=== PATIENT | male | born 2005 | race Two or more races ===

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

== ENCOUNTER 2023-04-21 12:56 | Emergency (ER) | payer OTHER ==
[2023-04-21 13:11] VITALS: BMI 19.3
[2023-04-21] MEDS ORDERED: ACETAMINOPHEN 1000 MG/100 ML BAG IVPB ONE (13:39)
[2023-04-21] MEDS ORDERED: ACETAMINOPHEN INJECTION 100 ML IVPB ONE (13:46)
[2023-04-21 14:29] LABS: BASO % 0.5 % (0-2.0); EOS % 1.9 % (0-4.5); HEMATOCRIT 44.2 % (35.4-49); LYMPH % 10.4 % (8-40); MCH 31.2 pg (25.7-33.7); MCHC 33.9 g/dl (32.0-35.9); MEAN CELL VOLUME 92.1 fl (80-96); MEAN PLT VOLUME 8.4 fl (7.5-11.1); MONO % 8.6 % (3.8-10.2); NEUT % 78.6 % (42.8-82.8); PLATELET COUNT 188 10^3/uL (134-434); RDW 12.3 % (11.9-15.9); WHITE BLOOD COUNT 8.6 K/mm3 (4.0-10.0)
[2023-04-21 14:33] LABS: INR 1.11 (0.83-1.09); PROTHROMBIN TIME (PATIENT) 12.9 SEC (9.7-13.0)
[2023-04-21 14:36] LABS: ACTIVATED PTT 31.7 SECONDS (25.2-36.5)
[2023-04-21 14:57] LABS: POTASSIUM 4.4 mmol/L (3.5-5.1)
[2023-04-21 15:00] LABS: ALBUMIN 4.1 g/dl (3.4-5.0)
[2023-04-21 15:01] LABS: BLOOD UREA NITROGEN 11.2 mg/dL (7-18)
[2023-04-21 15:05] LABS: BILIRUBIN,TOTAL 1.5 mg/dL (0.2-1); TOT PROT 7.2 g/dl (6.4-8.2)
[2023-04-21 15:44] LABS: URINE APPEARANCE CLEAR; URINE BILIRUBIN NEGATIVE (NEGATIVE); URINE COLOR YELLOW; URINE GLUCOSE (UA) NEGATIVE (NEGATIVE); URINE KETONE NEGATIVE (NEGATIVE); URINE LEUK ESTERASE NEGATIVE (NEGATIVE); URINE NITRITE NEGATIVE (NEGATIVE); URINE PROTEIN NEGATIVE (NEGATIVE); URINE UROBILINOGEN 0.2 mg/dL (0.2-1.0)
[2023-04-21 15:57] VITALS: BP 97/56; PULSE 72; RESP 18; TEMP 98.2
[2023-04-21] MEDS ORDERED: cefTRIAXone SODIUM 1 GM VIAL ONE (16:04)
[2023-04-21] MEDS ORDERED: LIDOCAINE HCL/PF 1% SDV 5ML VIAL ONE (16:05)
== END 2023-04-21 16:31 | disposition home or self-care (01) ==
LOC: JER 12:56
PROC: 3E023GC Introduction of Other Therapeutic Substance into Muscle, Percutaneous Approach (ICD-10-PCS; principal; 2023-04-21)
PROC: 3E033GC Introduction of Other Therapeutic Substance into Peripheral Vein, Percutaneous Approach (ICD-10-PCS; principal; 2023-04-21)
DX: N45.1 Epididymitis (principal)
CPT/HCPCS: 36415; 76870-TC; 80053; 81003; 85025; 85610; 85730; 86850; 86900; 86901; 87086; 87491; 87591; 87661; 99284-25

== ENCOUNTER 2023-05-02 14:49 | Emergency (ER) | payer OTHER ==
[2023-05-02 14:57] VITALS: TEMP 98.4; BMI 19.3
[2023-05-02] MEDS ORDERED: ACETAMINOPHEN 500 MG TABLET (FP) PO ONE (16:03)
[2023-05-02 16:06] LABS: PH,URINE 6.5 (5.0-8.0); URINE APPEARANCE CLEAR; URINE BILIRUBIN NEGATIVE (NEGATIVE); URINE COLOR YELLOW; URINE GLUCOSE (UA) NEGATIVE (NEGATIVE); URINE KETONE NEGATIVE (NEGATIVE); URINE LEUK ESTERASE NEGATIVE (NEGATIVE); URINE NITRITE NEGATIVE (NEGATIVE); URINE PROTEIN NEGATIVE (NEGATIVE); URINE UROBILINOGEN 0.2 mg/dL (0.2-1.0)
[2023-05-02] MEDS ORDERED: ACETAMINOPHEN 325 MG TABLET (FP) ONE (16:17)
[2023-05-02 18:48] VITALS: BP 108/58; PULSE 72; RESP 18
== END 2023-05-02 18:49 | disposition home or self-care (01) ==
LOC: JER 14:49
DX: N50.812 Left testicular pain (principal); N50.82 Scrotal pain
CPT/HCPCS: 36415; 76870-TC; 81003; 87086; 87491; 87591; 99284-25